=== PATIENT | female | born 1995 | race Caucasian/White ===

== ENCOUNTER 2019-08-30 03:17 | Inpatient (IN) | payer BC, OTHER, SELFPAY ==
[~2019-08-30] VITALS: Ht 175.3 cm; Wt 71.2 kg
[2019-08-30 03:23] VITALS: Ht 175.3 cm; Wt 71.2 kg
[2019-08-30 04:43] LABS: BASOPHIL % 0.1 % (0-2); PLATELET COUNT 203 x10^3mcL (130-400)
[2019-08-30 04:54] LABS: ALBUMIN 3.6 g/dL (3.4-5.0); ALKALINE PHOSPHATASE 75 U/L (46-116); ALT/SGPT 65 U/L (14-59); AST/SGOT 83 U/L (15-37); CARBON DIOXIDE 24.7 mmol/L (21-32); CHLORIDE SERUM 101 mmol/L (98-107); CREATININE SERUM 0.6 mg/dL (0.6-1.0); GFR1 > 60 mL/min; GLUCOSE SERUM 84 mg/dL (74-106); LACTIC DEHYDROGENASE (LDH) 236 U/L (100-190); SODIUM SERUM 138 mmol/L (136-145); TOTAL PROTEIN, SERUM 7.1 g/dL (6.4-8.2)
[2019-08-30 04:59] LABS: RED CELL DISTRIBUTION WIDTH 14.6 % (11.5-14.5)
[2019-08-30] MEDS ORDERED: KEFLEX500 M1 PO (06:15)
[2019-08-30] MEDS ORDERED: POLYSPORIN1 OI1 TP (06:16)
[2019-08-30] MEDS ORDERED: THIAMINE HCL100 MG PO (06:18)
[2019-08-30] MEDS ORDERED: MULTI COMPLETE1 EACH PO (06:18)
[2019-08-30] MEDS ORDERED: NATURE'S BLEND F1 MG PO (06:19)
[2019-08-30] MEDS ORDERED: TRAZODONE150 M1 PO (06:21)
[2019-08-30] MEDS ORDERED: ZOF4 PO (06:22)
[2019-08-30] MEDS ORDERED: LIB25 PO (06:22)
[2019-08-30] MEDS ORDERED: [UNRECOGNIZED DRUG - OTHER] (06:23)
[2019-08-30] MEDS ORDERED: IMODIUM MULTI-S1 TAB PO (06:26)
[2019-08-30] MEDS ORDERED: APAP325 MG PO (06:28)
[2019-08-30] MEDS ORDERED: MP PO (06:33)
[2019-08-30 08:08] LABS: AMPHETAMINE QUAL UR NONE DETECTED (See below)
[2019-08-30 08:44] LABS: UA SPECIFIC GRAVITY 1.025 (1.005-1.035); microscopic required? YES; urine erythrocyte 3+ (NEGATIVE)
[2019-08-30 11:41] VITALS: BP 141/83
[2019-08-30 17:50] VITALS: BP 128/90
[2019-08-30 20:00] VITALS: BP 130/90
[2019-08-31 00:05] VITALS: BP 126/84
[2019-08-31 06:54] VITALS: BP 131/93
[2019-08-31 07:20] LABS: BASOPHIL % 0.1 % (0-2); PLATELET COUNT 185 x10^3mcL (130-400)
[2019-08-31 07:49] LABS: ALKALINE PHOSPHATASE 72 U/L (46-116); ALT/SGPT 73 U/L (14-59); AST/SGOT 82 U/L (15-37); BILIRUBIN TOTAL 1.21 mg/dL (0.20-1.00); CALCIUM 8.9 mg/dL (8.5-10.1); CARBON DIOXIDE 25.6 mmol/L (21-32); CHLORIDE SERUM 101 mmol/L (98-107); CREATININE SERUM 0.6 mg/dL (0.6-1.0); GFR1 > 60 mL/min; GLUCOSE SERUM 80 mg/dL (74-106); MAGNESIUM 1.9 mg/dL (1.8-2.4); PHOSPHOROUS 1.8 mg/dL (2.5-4.9); SODIUM SERUM 139 mmol/L (136-145); TOTAL PROTEIN, SERUM 6.9 g/dL (6.4-8.2)
[2019-08-31 07:59] LABS: ALBUMIN 3.3 g/dL (3.4-5.0)
[2019-08-31 08:00] LABS: POTASSIUM SERUM 2.8 mmol/L (3.5-5.1)
[2019-08-31 10:20] VITALS: BP 129/91
[2019-08-31 17:40] VITALS: BP 151/71
[2019-08-31 17:50] LABS: CALCIUM 8.9 mg/dL (8.5-10.1); CHLORIDE SERUM 101 mmol/L (98-107); CREATININE SERUM 0.6 mg/dL (0.6-1.0); GFR1 > 60 mL/min; GLUCOSE SERUM 81 mg/dL (74-106); MAGNESIUM 1.9 mg/dL (1.8-2.4); PHOSPHOROUS 1.5 mg/dL (2.5-4.9); POTASSIUM SERUM 3.1 mmol/L (3.5-5.1); SODIUM SERUM 140 mmol/L (136-145)
[2019-08-31 19:33] VITALS: BP 120/80
[2019-09-01 06:26] LABS: BASOPHIL % 0.1 % (0-2); PLATELET COUNT 186 x10^3mcL (130-400); RED CELL DISTRIBUTION WIDTH 14.2 % (11.5-14.5)
[2019-09-01 06:52] LABS: CALCIUM 9.2 mg/dL (8.5-10.1); CARBON DIOXIDE 24.6 mmol/L (21-32); CHLORIDE SERUM 101 mmol/L (98-107); CREATININE SERUM 0.5 mg/dL (0.6-1.0); GFR1 > 60 mL/min; GLUCOSE SERUM 83 mg/dL (74-106); MAGNESIUM 1.9 mg/dL (1.8-2.4); PHOSPHOROUS 2.6 mg/dL (2.5-4.9); SODIUM SERUM 139 mmol/L (136-145)
[2019-09-01 07:03] LABS: POTASSIUM SERUM 2.9 mmol/L (3.5-5.1)
[2019-09-01 09:06] VITALS: BP 135/95
[2019-09-01 13:25] VITALS: BP 126/87
[2019-09-01 16:46] VITALS: BP 141/98
[2019-09-01 17:54] LABS: CALCIUM 9.6 mg/dL (8.5-10.1); CARBON DIOXIDE 26.2 mmol/L (21-32); CHLORIDE SERUM 97 mmol/L (98-107); CREATININE SERUM 0.5 mg/dL (0.6-1.0); GFR1 > 60 mL/min; GLUCOSE SERUM 90 mg/dL (74-106); POTASSIUM SERUM 3.6 mmol/L (3.5-5.1); SODIUM SERUM 133 mmol/L (136-145)
[2019-09-01 18:16] VITALS: BP 141/98
[2019-09-01] MEDS ORDERED: LIB25 PO (18:20)
[2019-09-01] MEDS ORDERED: REGLAN10 M1 PO (18:21)
[2019-09-01] MEDS ORDERED: ZITHROMAX500 MG PO (18:23)
[2019-09-01] MEDS ORDERED: LAC PO (18:44)
== END 2019-09-01 19:25 | DRG 864 ==
LOC: ED 03:17 → MU 05:45
PROVIDERS: Emergency Medicine; ADMIT Student in an Organized Health Care Education/Training Program
DX: R50.9 Fever, unspecified (principal); R45.851 Suicidal ideations; R00.0 Tachycardia, unspecified; E87.6 Hypokalemia; F10.10 Alcohol abuse, uncomplicated; F32.9 Major depressive disorder, single episode, unspecified; F41.9 Anxiety disorder, unspecified; R74.0 Nonspecific elevation of levels of transaminase and lactic acid dehydrogenase [LDH]; Z79.899 Other long term (current) drug therapy; Z03.818 Encounter for observation for suspected exposure to other biological agents ruled out
CPT/HCPCS: 36600; 83880; 85378; 87804; G0378; G0480; J0456; J0696; J2060; J2405; J2765; J3480; J7030; Q0092